=== PATIENT | male | born 1975 | race Caucasian/White ===

== ENCOUNTER 2016-03-03 08:15 | Emergency (ER) | payer MEDICAID ==
[~2016-03-03] VITALS: Ht 188 cm; Wt 113.5 kg
[~2016-03-03 08:15] MED LIST: SERO400T PO; XANA2TAB2 PO
[2016-03-03 08:17] VITALS: BP 139/80; PULSE 68; RESP 16; TEMP 97.3; O2SAT 98
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
== END 2016-03-03 08:41 | disposition left against medical advice (07) ==
LOC: NEPB 08:15
DX: M54.5 Low back pain (principal); G89.29 Other chronic pain; M25.512 Pain in left shoulder; M25.511 Pain in right shoulder
CPT/HCPCS: 99281